=== PATIENT | male | born 1955 | race Caucasian/White ===

== ENCOUNTER 2023-08-10 11:51 | Emergency (ER) | payer OTHER ==
--- OUTSIDE RECORDS SUMMARY | 2023-08-10 11:54 | XMS REPORT | Continuity of Care Document ---
:[address] [facility] t Address [address] [place] [address] [place] [id number] Care Team Providers Name Role Phone Valdo Enamorado Attending Clinician Unavailable Problems Condition Condition Condition Status Onset Resolution Last Treating Co mments Source Name Details Category Date Date Treatment Clinician Date [id number] Mixed Problem Common hyperlipid [facility] emia [facility] [id number] History of Problem Co mmon melanoma [facility] [id number] Exposure Problem Com wed to heavy [facility] metals [facility] Allergies, Adverse Reactions, Alerts This patient has no known allergies or adverse reactions. Social History Social Habit Start Date Stop Date Quantity Comments Source History of Tobacco Use Co mmon [facility] Sex Assigned At Com mon [facility] Smoking Status Start Date Stop Date Source Never Smoker [facility] Medications Ordered Filled Start Stop Current Ordering Indication Dosage Frequency Signature Comments Components Source Medication Medication Date Date Medication? Clinician (SIG) Name Name Curcumin 95 Curcumin 95 Yes Valdo as Common Enamorado directed [facility] Vitamin D3 Vitamin D3 Yes Valdo 1 capsule Common [facility] B12 Folate B12 Folate Yes Valdo as C ommon Enamorado directed [facility] Vitamin D3 Vitamin D3 No 1{capsu Vitamin D3 1.25 MG 1.25 MG le} 1.25 MG (72823 UT) (85568 UT) (73885 UT) Curcumin 95 Curcumin 95 No Curcumin 500 MG 500 MG 95 500 MG B12 Folate B12 Folate No B12 Folate 800-800 MCG 800-800 MCG 800-800 MCG Vitamin D3 Vitamin D3 No 1{capsu Vitamin D3 1.25 MG 1.25 MG le} 1.25 MG (87641 UT) (62136 UT) (29367 UT) Curcumin 95 Curcumin 95 No Curcumin 500 MG 500 MG 95 500 MG B12 Folate B12 Folate No B12 Folate 800-800 MCG 800-800 MCG 800-800 MCG Curcumin 95 Curcumin 95 No Curcumin 500 MG 500 MG 95 500 MG Vitamin D3 Vitamin D3 No 1{capsu Vitamin D3 1.25 MG 1.25 MG le} 1.25 MG (03636 UT) (98311 UT) (40749 UT) B12 Folate B12 Folate No B12 Folate 800-800 MCG 800-800 MCG 800-800 MCG Curcumin 95 Curcumin 95 No Curcumin 500 MG 500 MG 95 500 MG Vitamin D3 Vitamin D3 No 1{capsu Vitamin D3 1.25 MG 1.25 MG le} 1.25 MG (12822 UT) (11925 UT) (86813 UT) B12 Folate B12 Folate No B12 Folate 800-800 MCG 800-800 MCG 800-800 MCG Curcumin 95 Curcumin 95 No Curcumin 500 MG 500 MG 95 500 MG B12 Folate B12 Folate No B12 Folate 800-800 MCG 800-800 MCG 800-800 MCG Vitamin D3 Vitamin D3 No 1{capsu Vitamin D3 1.25 MG 1.25 MG le} 1.25 MG (96907 UT) (23004 UT) (79871 UT) Immunizations Ordered Filled Immunization Date Status Comments [facility] e Immunization Name Name Adacel (Tdap) Adacel (Tdap) 2019-10-31 Completed Common S pirit 14:39:00 - [facility] Adacel (Tdap) Adacel (Tdap) 2019-10-31 Completed Common S pirit 14:39:00 - [facility] Adacel (Tdap) Adacel (Tdap) 2019-10-31 Completed Common S pirit 14:39:00 [facility] Adacel (Tdap) Adacel (Tdap) 2019-10-31 Completed Common S pirit 14:39:00 - [facility] Adacel (Tdap) Adacel (Tdap) Unknown Completed [facility] Vital Signs Vital Name Observation Time Observation Value Comments Source height 2023-01-05 13:00:00 73.5 [in_i] Common [facility] weight 2023-01-05 13:00:00 211 [lb_av] Common [facility] temperature 2023-01-05 13:00:00 98 [degF] Common [facility] bmi 2023-01-05 13:00:00 27.46 kg/m2 Common S pirit [facility] blood pressure 2023-01-05 13:00:00 132 mm[Hg] [facility] - systolic [facility] blood pressure 2023-01-05 13:00:00 70 mm[Hg] [facility] - diastolic [facility] height 2022-09-03 15:00:00 73.5 [in_i] [facility] weight 2022-09-03 15:00:00 224.8 [lb_av] [facility] temperature 2022-09-03 15:00:00 97.2 [degF] [facility] bmi 2022-09-03 15:00:00 29.25 kg/m2 [facility] oximetry 2022-09-03 15:00:00 95 % [facility] respiratory rate 2022-09-03 15:00:00 16 /min Comm on [facility] blood pressure 2022-09-03 15:00:00 138 mm[Hg] [facility] - systolic [facility] blood pressure 2022-09-03 15:00:00 75 mm[Hg] [facility] - diastolic [facility] height 2022-09-03 14:20:00 73.5 [in_i] Common S [facility] weight 2022-09-03 14:20:00 224.8 [lb_av] [facility] temperature 2022-09-03 14:20:00 97.2 [degF] [facility] bmi 2022-09-03 14:20:00 29.25 kg/m2 [facility] S [facility] oximetry 2022-09-03 14:20:00 95 % Common S pirit - [facility] respiratory rate 2022-09-03 14:20:00 16 /min Comm on [facility] blood pressure 2022-09-03 14:20:00 138 mm[Hg] Common [facility] - systolic [facility] blood pressure 2022-09-03 14:20:00 75 mm[Hg] Common [facility] - diastolic [facility] Procedures This patient has no known procedures. Encounters Start End Encounter Admission Attending Care Care Encounter Source Date/Time Date/Time Type Type Clinicians Facility Department ID 2023-01-01 Outpatient Enamorado, STLMLC STLMLC [id number] Common 09:02:00 Valdo 85219 [facility] 2022-09-02 Outpatient Enamorado, STLMLC STLMLC [id number] Common 14:52:01 Valdo 10724 [facility] 2021-10-22 Outpatient Enamorado, STLMLC STLMLC [id number] Common 11:17:20 Valdo 45030 [facility] 2021-10-22 Outpatient Enamorado, STLMLC STLMLC [id number] Common 11:17:13 Valdo 71563 [facility] 2021-10-22 Outpatient Enamorado, STLMLC STLMLC [id number] Common 11:12:44 Valdo 65566 [facility] 2021-10-22 Outpatient Enamorado, STLMLC STLMLC [id number] Common 11:06:18 Valdo 56472 [facility] 2023-01-05 2023-01-05 OFFICE STLMLC STLMLC [id number] Co mmon 00:00:00 00:00:00 VISIT Spirit ESTAB PT - CHI LEVEL 3 [facility] 2022-09-03 2022-09-03 SUB ANNUAL STLMLC STLMLC [id number] Common 00:00:00 00:00:00 MCR Spirit WELLNESS - CHI VISIT [facility] 2022-09-03 2022-09-03 OFFICE STLMLC STLC [id number] Co mmon 00:00:00 00:00:00 VISIT EST Spir it PT LEVEL 3 - [facility] 2022-08-31 2022-08-31 (TEL) STLC STLC [id number] Co mmon 00:00:00 00:00:00 [facility] 2022-06-11 2022-06-11 (TEL) STLC STLC [id number] Co mmon 00:00:00 00:00:00 [facility] 2019-12-04 2019-12-04 Outpatient [id number] Common 14:15:00 14:15:[address] Family - [facility] Results This patient has no known results.
[2023-08-10] MEDS ORDERED: LIDOCAINE 4% PATCH ONE (12:38)
[2023-08-10] MEDS ORDERED: ACETAMINOPHEN 500 MG TAB ONE (12:38)
--- NOTE | 2023-08-10 12:51 | RAD REPORT ---
EXAM DESCRIPTION: RAD - C Spine Ap/Lat - 08/10/2023 12:33 pm CLINICAL HISTORY: R lateral pain COMPARISON: No comparisons TECHNIQUE: Cervical spine, 3 views. FINDINGS: T1 level is obscured by over shadowing shoulder soft tissues. Straightening of normal cervical lordosis, may be positional or secondary to muscle spasm. Cervical v ertebral bodies are normal in height, and show no significant spondylolisthesis. No fracture or acute bony process seen. Multilevel endplate and facet degenerative changes. Disc height loss spanning C4-C5 through C6-C7 lev els. There is no prevertebral soft tissue thickening or other suspicious soft tissue finding. IMPRESSION: Degenerative changes as above with straightening of normal cervical lordosis. No acute o sseus abnormality.
--- NOTE | 2023-08-10 13:19 | EDPHYS ---
Physician Documentation [facility] Name: Enzo Covington Age: 68 yrs Sex: Male : 1955 Arrival Date: 08/10/2023 Time: 11:51 Bed 9 Private MD: ED Physician Urbano Madrid HPI: 08/10 12:16 Patient is a 68-year-old with acute on chronic neck pain. Patient states that he has jr11 had neck pain for years however over the last 4 days increasing pain over the musculature on the right side of his neck, feels that these muscles have a spasm are tight and swollen, denies any trauma, states that in the past used to go to a chiropractor. Patient has tried ibuprofen for pain, only mild relief, last dose last night. Denies any renal insufficiency renal problems has not taken anything today. Patient has had this exacerbation of his neck pain for the last 4 days, states he is slightly better today than he was yesterday. Denies any neuro complaints, at baseline otherwise. Denies exertional pain, no tearing pain, does not radiate to the back, does not cross the diaphragm. No diaphoresis, no vomiting. No syncope or near-syncope. . Historical: - Allergies: 12:11 bandaids; iw - Immunization history:: Adult Immunizations up to date. - Social history:: Smoking status: Patient denies any tobacco usage or history of. ROS: 12:16 All other systems are negative, jr11 Exam: 12:16 Constitutional: This is a well developed, well nourished patient who is awake, alert, jr11 and in no acute distress. Head/Face: Normocephalic, atraumatic. Eyes: Extra-ocular motions intact. Lids and lashes normal. Conjunctiva and sclera are non-icteric and not injected. Cornea within normal limits. Periorbital areas with no swelling, redness, or edema. ENT: Nares patent. No nasal discharge, no septal abnormalities noted. Oropharynx with no redness, swelling, or masses, exudates, or evidence of obstruction, uvula midline. Mucous membranes moist. Neck: Tenderness to palpation over right sternocleidomastoid, more so at the insertion site, no pain over the carotid no pain over the anterior neck no pain midline cervical no step-offs. No neurodeficit. Chest/axilla: Normal chest wall appearance and motion. Nontender with no deformity. No lesions are appreciated. Cardiovascular: Regular rate and rhythm with a normal S1 and S2. No gallops, murmurs, or rubs. Normal PMI, no JVD. No pulse deficits. Respiratory: Lungs have equal breath sounds bilaterally, clear to auscultation and percussion. No rales, rhonchi or wheezes noted. No increased work of breathing, no retractions or nasal flaring. Abdomen/GI: Soft, non-tender, with normal bowel sounds. No distension or tympany. No guarding or rebound. No evidence of tenderness throughout. Back: No spinal tenderness. No costovertebral tenderness. Full range of motion. Skin: Warm, dry with normal turgor. Normal color with no rashes, no lesions, and no evidence of cellulitis. MS/ Extremity: Pulses equal, no cyanosis. Neurovascular intact. Full, normal range of motion. Neuro: Awake and alert, GCS 15, oriented to person, place, time, and situation. No gross motor or sensory deficits. Vital Signs: 12:06 BP 153 / 89; Pulse 66; Resp 16; Temp 98.4; Pulse Ox 99% on R/A; iw MDM: 12:16 Patient medically screened. [facility] 12:16 Differential diagnosis: arthritis, C-Spine Fracture torticollis. Data reviewed: vital [facility] signs, nurses notes. 13:18 ED course: XR interpreted by me shows DJD. Pt feeling better to f/u PCP. [facility] 08/10 12:15 Order name: XRAY C Spine Ap/lat; Complete Time: 12:58 [facility] Administered Medications: 12:38 Drug: Acetaminophen PO 1000 mg PO once Route: PO; hb 12:38 Drug: Ketorolac IM 30 mg IM once Route: IM; Site: left deltoid; hb 12:38 Drug: Lidoderm Topical Patch 5 % (700 mg/patch) 1 patches Topical once; leave on for 12 hb hours; cover most painful area; may cut into smaller pieces Route: Topical; Site: affected area; Disposition Summary: 08/10/23 13:19 Discharge Ordered Notes: Location: Home [facility] Condition: Stable [facility] Diagnosis - Cervicalgia [facility] Discharge Instructions: - Discharge Summary Sheet jr11 - Arthritis jr11 - Musculoskeletal Pain jr11 - Neck Exercises jr11 Forms: - Medication Reconciliation Form jr11 - Thank You Letter jr11 - Antibiotic Education jr11 - Prescription Opioid Use jr11 - Patient Portal Instructions jr11 - Leadership Thank You Letter jr11 Prescriptions: - diclofenac sodium 3 % Topical gel - apply 1 application TOPICAL route 2 times per day prn pain, take with 1g jr11 tylenol every 6 hours; 1 unit; Refills: 0, Product Selection Permitted Signatures: Dispatcher [employer] Sadia Oakes RN RN iw Baxter, Heather, RN RN hb Rosillo, Jose, MD MD jr11
--- NOTE | 2023-08-10 13:19 | ER ---
Nurse's Notes [facility] Name: Enzo Covington Age: 68 yrs Sex: Male : 1955 Arrival Date: 08/10/2023 Time: 11:51 Bed 9 Private MD: Diagnosis: Cervicalgia Presentation: 08/10 12:06 Chief complaint: Patient states: Wednesday I woke up and had trouble turning my head, has iw pain ganesh he turns either direction, pain is more intense on right side behind ear , called his PCP he told him to come in for imaging. Coronavirus screen: At this time, the client does not indicate any symptoms associated with coronavirus-19. Ebola Screen: Patient negative for fever greater than or equal to 101.5 degrees Fahrenheit, and additional compatible Ebola Virus Disease symptoms Patient denies exposure to infectious person. Patient denies travel to an Ebola-affected area in the 21 days before illness onset. No symptoms or risks identified at this time. Initial Sepsis Screen: Does the patient meet any 2 criteria? No. Patient's initial sepsis screen is negative. Does the patient have a suspected source of infection? No. Patient's initial sepsis screen is negative. Risk Assessment: Do you want to hurt yourself or someone else? Patient reports no desire to harm self or others. Onset of symptoms was August 08, 2023. 12:06 Method Of Arrival: Ambulatory iw 12:06 Acuity: GWEN 3 iw Historical: - Allergies: 12:11 bandaids; iw - Immunization history:: Adult Immunizations up to date. - Social history:: Smoking status: Patient denies any tobacco usage or history of. Screenin:30 [facility] ED Fall Risk Assessment (Adult) Score/Fall Risk Level 0 - 2 = Low Risk hb Oriented to surroundings, Maintained a safe environment, Educated pt \T\ family on fall prevention, incl call for assistance when getting out of bed. Abuse screen: Denies threats or abuse. Denies injuries from another. Nutritional screening: No deficits noted. Tuberculosis screening: No symptoms or risk factors identified. Assessment: 12:30 General: Appears in no apparent distress. Behavior is calm, cooperative. Pain: Pain hb currently is 8 out of 10 on a pain scale. Neuro: Level of Consciousness is awake, alert, obeys commands, Oriented to person, place, time, situation. Cardiovascular: Patient's skin is warm and dry. Respiratory: Respiratory effort is even, unlabored, Respiratory pattern is regular, symmetrical. GI: No signs and/or symptoms were reported involving the gastrointestinal system. : No signs and/or symptoms were reported regarding the genitourinary system. EENT: No signs and/or symptoms were reported regarding the EENT system. Derm: Skin is pink, warm \T\ dry. Musculoskeletal: Reports right sided neck pain. 13:33 Reassessment: Patient appears in no apparent distress at this time. Patient and/or hb family updated on plan of care and expected duration. Pain level reassessed. Patient is alert, oriented x 3, equal unlabored respirations, skin warm/dry/pink. Vital Signs: 12:06 BP 153 / 89; Pulse 66; Resp 16; Temp 98.4; Pulse Ox 99% on R/A; iw ED Course: 11:54 Patient arrived in ED. mr 11:57 Urbano Madrid MD is Attending Physician. jr11 12:08 Triage completed. iw 12:08 Arm band placed on. iw 12:18 Imelda Madden, RN is Primary Nurse. hb 12:30 Patient has correct armband on for positive identification. Provided Education on: hb tests, result times. 12:30 No provider procedures requiring assistance completed. Patient did not have IV access hb during this emergency room visit. 12:35 XRAY C Spine Ap/lat In Process Unspecified. EDMS Administered Medications: 12:38 Drug: Acetaminophen PO 1000 mg PO once Route: PO; hb 12:38 Drug: Ketorolac IM 30 mg IM once Route: IM; Site: left deltoid; hb 12:38 Drug: Lidoderm Topical Patch 5 % (700 mg/patch) 1 patches Topical once; leave on for 12 hb hours; cover most painful area; may cut into smaller pieces Route: Topical; Site: affected area; Medication: 12:30 VIS not applicable for this client. hb Outcome: 13:19 Discharge ordered by . jr11 13:33 Discharged to home ambulatory, hb 13:33 Condition: stable 13:33 Discharge instructions given to patient, Instructed on discharge instructions, follow up and referral plans. medication usage, Demonstrated understanding of instructions, follow-up care, medications, Prescriptions given X 1, 13:34 Patient left the ED. hb Signatures: Dispatcher [facility] Donal Liset, Reg Reg mr Sadia Caro, RADHA RN iw Imelda Madden RN RN Urbano Cook MD MD jr11 Corrections: (The following items were deleted from the chart) 12:12 12:06 BP 153 / 89; Pulse 66bpm; Resp 16bpm; Pulse Ox 99% RA; Temp 98.4F; iw iw
[2023-08-10 13:38] VITALS: BP 153/89; TEMP 98.4; O2SAT 99
== END 2023-08-10 13:34 | disposition home or self-care (01) ==
LOC: ER 11:51
DX: M54.2 Cervicalgia (principal); Z91.048 Other nonmedicinal substance allergy status
CPT/HCPCS: 72040; 96372; 99284; J2001